=== PATIENT | female | born 1980 | race Caucasian/White ===

== ENCOUNTER 2016-08-16 14:33 | Emergency (ER) | payer OTHER ==
[~2016-08-16] VITALS: Wt 56.0 kg
[~2016-08-16 14:33] MED LIST: IBUPROFEN
[2016-08-16] MEDS ORDERED: ALPR2TAB PO (16:29)
[2016-08-16] MEDS ORDERED: CYCL5TAB PO (16:29)
--- NOTE | 2016-08-16 17:35 | ERD ---
ER Documentation Chief Complaint Date/Time DATE: 08/16/16 TIME: 17:32 Chief Complaint PT HERE FOR MED REFILL ON ANXIETY MED HPI 35-year-old female with a history of anxiety, otherwise healthy comes in for medication refill for Xanax. Patient states that she is currently seeing a pain doctor, Dr. Collins and she ran out of the Xanax that was written on July 19, 2016 quantity #70. She has been seeing him for some time now and states that she just came back from out of town and her doctor is not in until Tuesday. She states that she is under a lot more stress recently, and usually takes Xanax 3 times a day. She denies SI or HI. ROS All systems reviewed and are negative except as per history of present illness. Medications Home Meds Active Scripts Cyclobenzaprine Hcl* (Cyclobenzaprine Hcl*) 5 Mg Tablet, 5 MG PO Q8H Y for PAIN , #6 TAB Prov:SHAHZAD SIDDIQUI PA-C 08/16/16 Alprazolam* (Xanax*) 2 Mg Tablet, 2 MG PO Q8H Y for ANXIETY, #6 TAB Prov:SHAHZAD SIDDIQUI PA-C 08/16/16 Reported Medications [Ibuprofen] No Conflict Check 10/22/09 Allergies Allergies: Coded Allergies: Penicillins (Verified Allergy, Mild, 10/22/09) PMhx/Soc History of Surgery: No Hx Neurological Disorder: No Hx Respiratory Disorders: No Hx Cardiac Disorders: No Hx Miscellaneous Medical Probl: No Hx Alcohol Use: Yes Hx Substance Use: No Hx Tobacco Use: No Physical Exam Vitals Vital Signs Date Time Temp Pulse Resp B/P Pulse Ox O2 Delivery O2 Flow Rate FiO2 08/16/16 14:51 98.3 97 17 119/81 98 Physical Exam General: Well-developed, well-nourished. The patient appears in no acute distress. HEENT: Head is normocephalic, atraumatic. No scleral icterus. Neck is supple. Lungs: Clear to auscultation. Normal air movement. Heart: Regular rate and rhythm. S1 and S2 are normal. No murmurs, gallops, or rubs. Abdomen: Soft, nontender, nondistended. Bowel sounds are normoactive. Extremities: No clubbing or cyanosis. Normal pulses. Moving extremities x 4. No weakness. Neurologic: Alert and oriented 3. No focal deficits. Skin: Normal turgor. No rash or lesions. Procedures/MDM A CURES report shows that patient did see Dr. Collins on July 19, she does not have any other refills from other providers at this time. She does take medication also Suboxone, and is also asking for refill for Flexeril. 35-year-old female comes to the ER for a short refill for Xanax. CURES report is consistent with the patient's history, I do not see multiple prescriber use of polypharmacy use. Furthermore, patient's previous visits do not include medication refills. I explained that our policy is that refill should be done through one provider. I have asked her to see her primary care doctor in the next 1-2 days, she will be given 2 days worth and I also explained our drug policy in the emergency room, and that further refills should be done through only one provider. Her anxiety is well controlled at this time, she does not require any medication the right at this moment, she also denies any thoughts of suicide ideation or homicidal ideation and does not require any further psychiatric care emergently. Departure Diagnosis: Primary Impression: Encounter for medication refill Additional Impression: Anxiety Condition: Good Patient Instructions: Anxiety Reaction Additional Instructions: See your doctor in 1-2 days. Medication refills further should be done by only 1 provider. SHAHZAD SIDDIQUI PA-C Aug 16, 2016 17:35
== END 2016-08-16 16:30 | disposition home or self-care (01) ==
LOC: E/R 14:33
DX: Z76.0 Encounter for issue of repeat prescription (principal); F41.9 Anxiety disorder, unspecified
CPT/HCPCS: 99283

== ENCOUNTER → 2016-09-18 | Emergency (ER) | payer SELFPAY ==
[~2016-09-18] VITALS: Ht 162.6 cm; Wt 54.5 kg
[~2016-09-18] MED LIST changes: +ALPR2TAB PO; +CYCL-319 PO; +CYCL5TAB PO
[2016-09-18 20:57] VITALS: Ht 162.6 cm; Wt 54.5 kg
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
[2016-09-18 22:13] LABS: ADD UMIC YES; URINE BILIRUBIN (Dip) 1+ (NEGATIVE); URINE BLOOD (Dip) NEGATIVE (NEGATIVE); URINE COLOR YELLOW (YELLOW); URINE GLUCOSE (Dip) NEGATIVE (NEGATIVE); URINE KETONES (Dip) 40 (NEGATIVE); URINE LEUKOCYTE ESTERASE (Dip) TRACE (NEGATIVE); URINE NITRITE (Dip) NEGATIVE (NEGATIVE); URINE TOTAL PROTEIN (Dip) NEGATIVE (NEGATIVE); URINE UROBILINOGEN (Dip) 4.0 E.U./dL (0.1-1.0)
[2016-09-18 22:17] LABS: BASOPHILS % 0.5 % (0.0-2.0); CONDITION 1; EOSINOPHILS # 0.1 10^3/ul (0.0-0.5); EOSINOPHILS % 1.1 % (0.0-7.0); HEMATOCRIT 41.1 % (37.0-47.0); HEMOGLOBIN 14.1 g/dl (12.0-16.0); LYMPHOCYTES # 4.1 10^3/ul (0.8-2.9); LYMPHOCYTES % 46.2 % (15.0-51.0); MEAN CORPUSCULAR HEMOGLOBIN 31.6 pg (29.0-33.0); MEAN CORPUSCULAR HGB CONC 34.4 g/dl (32.0-37.0); MEAN CORPUSCULAR VOLUME 91.9 fl (82.0-101.0); MEAN PLATELET VOLUME 7.8 fl (7.4-10.4); MONOCYTE # 0.6 10^3/ul (0.3-0.9); MONOCYTES % 6.6 % (0.0-11.0); NEUTROPHILS % 45.6 % (39.0-77.0); PLATELET COUNT 368 10^3/UL (140-440); RED BLOOD COUNT 4.47 10^6/ul (4.20-5.40); RED CELL DISTRIBUTION WIDTH 12.6 % (11.5-14.5); UNCORRECTED WBC 8.8 10^3/ul (4.8-10.8); WHITE BLOOD COUNT 8.8 10^3/ul (4.8-10.8)
[2016-09-18 22:23] LABS: CHLORIDE 100 mmol/L (97-110)
[2016-09-18 22:24] LABS: POTASSIUM 3.6 mmol/L (3.5-5.1); SODIUM 142 mmol/L (135-144)
[2016-09-18 22:26] LABS: CREATININE 0.49 mg/dl (0.44-1.00)
[2016-09-18 22:27] LABS: ANION GAP 15 (8-16); BLOOD UREA NITROGEN 8 mg/dl (7-20); CALCIUM 9.7 mg/dl (8.4-10.2); CARBON DIOXIDE 31 mmol/L (21-31); GLUCOSE 88 mg/dl (70-220)
[2016-09-18 22:53] LABS: ICTOTEST NEGATIVE (NEGATIVE)
[2016-09-18 22:55] LABS: BACTERIA,URINE MANY; SQUAMOUS EPITHELIAL CELL,UR MANY; URINE RBCS 0-2 /HPF (0)
[2016-09-18 22:57] LABS: BARBITURATES Negative (NEGATIVE); BENZODIAZEPINES Positive (NEGATIVE); CANNABINOIDS Positive (NEGATIVE); COCAINE Negative (NEGATIVE); OPIATES Negative (NEGATIVE)
[2016-09-18 23:01] LABS: TROPONIN-I < 0.012 ng/ml (0.00-0.12)
[2016-09-18 23:38] VITALS: BP 122/65; PULSE 77; RESP 18
== END | disposition home or self-care (01) ==
LOC: FTE 20:47
DX: F41.9 Anxiety disorder, unspecified (principal); F17.210 Nicotine dependence, cigarettes, uncomplicated; R07.9 Chest pain, unspecified
CPT/HCPCS: 80048; 80307; 81001; 81003; 84484; 85025; 93005